=== PATIENT | female | born 1995 | race Caucasian/White ===

== ENCOUNTER 2018-07-28 09:57 | Emergency (ER) | payer OTHER ==
--- NOTE | 2018-07-28 10:57 | RAD REPORT ---
EXAM DESCRIPTION: RAD - Chest Pa And Lat (2 Views) - 07/28/2018 10:49 am CLINICAL HISTORY: COUGH Chest pain. COMPARISON: Chest Single View dated 03/04/2016 FINDINGS: The lungs are clear. The heart is normal in size. No displaced fractures. IMPRESSION: No acute or concerning finding suspected.
--- NOTE | 2018-07-28 11:18 | ER ---
Nurse's Notes [facility] Name: Renetta Flores Age: 22 yrs Sex: Female : 1995 Arrival Date: 07/28/2018 Time: 09:59 Bed 26 Private MD: None, None Diagnosis: Acute pharyngitis, unspecified Presentation: 07/28 10:11 Presenting complaint: Patient states: slight cough that began 1 1/2 weeks ago, pt aa5 states "I feel like I can barely breathe and I feel like my tonsils are swollen". Pt reports nasal congestion and runny nose. Transition of care: patient was not received from another setting of care. Onset of symptoms was July 2018. Risk Assessment: Do you want to hurt yourself or someone else? Patient reports no desire to harm self or others. Initial Sepsis Screen: Does the patient meet any 2 criteria? No. Patient's initial sepsis screen is negative. Does the patient have a suspected source of infection? No. Patient's initial sepsis screen is negative. Care prior to arrival: None. 10:11 Method Of Arrival: Ambulatory aa5 10:11 Acuity: HAIM 3 aa5 Triage Assessment: 11:13 General: Appears uncomfortable, Behavior is calm, cooperative. Respiratory: Reports ls4 cough that is non-productive, dry, Onset: The symptoms/episode began/occurred since beginning of the year. , the patient has mild shortness of breath. 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 - Social history:: Smoking status: Patient/guardian denies using tobacco. - Ebola Screening: : No symptoms or risks identified at this time. Screenin:12 Abuse screen: Denies threats or abuse. Denies injuries from another. Nutritional ls4 screening: No deficits noted. Tuberculosis screening: No symptoms or risk factors identified. Fall Risk None identified. Assessment: 11:12 Pain: Complains of pain in left aspect of posterior pharynx and right aspect of ls4 posterior pharynx Pain currently is 7 out of 10 on a pain scale. Cardiovascular: Rhythm is regular. Respiratory: Airway is patent Respiratory effort is even, unlabored, Breath sounds are clear bilaterally. Vital Signs: 10:13 BP 128 / 95; Pulse 88; Resp 16 S; Temp 98.3(O); Pulse Ox 100% on R/A; Weight 113.4 kg aa5 (R); Height 5 ft. 8 in. (172.72 cm) (R); Pain 7/10; 11:32 BP 126 / 84; Pulse 78; Resp 16; Pulse Ox 99% on R/A; Pain 3/10; ls4 10:13 Body Mass Index 38.01 (113.40 kg, 172.72 cm) aa5 ED Course: 09:59 Patient arrived in ED. dp 09:59 None, None is Private Physician. dp 10:09 Sue [facility]C [facility]. snw 10:09 Jose Antonio Perry MD is Attending Physician. snw 10:11 Arm band placed on. aa5 10:13 Triage completed. aa5 10:18 Susan Hull, RN is Primary Nurse. ls4 10:35 Patient moved to radiology via wheelchair. mh1 10:43 Chest Pa And Lat (2 Views) XRAY In Process Unspecified. EDMS 11:11 Urine Microscopic Only Sent. ls4 11:12 Patient has correct armband on for positive identification. Bed in low position. Call ls4 light in reach. Side rails up X 1. 11:12 No provider procedures requiring assistance completed. ls4 11:16 Leyda Gonzalez MD is Referral Physician. snw 12:00 Patient did not have IV access during this emergency room visit. ls4 Administered Medications: 11:20 Drug: Decadron 8 mg Route: PO; ls4 11:58 Follow up: Response: No adverse reaction ls4 Outcome: 11:18 Discharge ordered by . snw 12:00 Discharged to home ambulatory, with friend. ls4 12:00 Condition: stable 12:00 Discharge instructions given to patient, Instructed on discharge instructions, follow up and referral plans. medication usage, Demonstrated understanding of instructions, follow-up care, medications, Prescriptions given X 2. 12:03 Patient left the ED. ls4 Signatures: Dispatcher [employer] EDMS uSe Huang FNP-C METAL ENGRAVER-Csnw Anum Beltran 1 Lucy Roman, RN RN aa5 Susan Hull RN RN ls4 Josh Bowens Corrections: (The following items were deleted from the chart) 10: Immunization history: Flu vaccine status is unknown. aa5 aa5 10: BP 128 / 95; Pulse 88bpm; Resp 16bpm; Spontaneous; Pulse Ox 100% RA; Temp 98.3F aa5 Oral; aa5
--- NOTE | 2018-07-28 11:18 | EDPHYS ---
Physician Documentation [facility] Name: Renetta Flores Age: 22 yrs Sex: Female : 1995 Arrival Date: 07/28/2018 Time: 09:59 Bed 26 Private MD: None, None ED Physician Jose Antonio Perry HPI: 07/28 11:22 This 22 yrs old Female presents to ER via Ambulatory with complaints of snw Shortness Of Breath, Possible tonsil swelling. 11:22 The patient has shortness of breath on awakening. Onset: The symptoms/episode snw began/occurred 4 month(s) ago, and became persistent. Duration: The symptoms are chronic. Associated signs and symptoms: Pertinent positives: non-productive cough. Severity of symptoms: At their worst the symptoms were moderate. It is unknown whether or not the patient has had similar symptoms in the past. pt states she has taken antibiotics for same s/s without improvement. Tonsillar enlargement x 4 months. 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 - Social history:: Smoking status: Patient/guardian denies using tobacco. - Ebola Screening: : No symptoms or risks identified at this time. ROS: 11:21 Constitutional: Negative for fever, chills, and weight loss, Eyes: Negative for injury, snw pain, redness, and discharge. 11:21 Neck: Negative for injury, pain, and swelling, Cardiovascular: Negative for chest pain, palpitations, and edema, Respiratory: Negative for shortness of breath, cough, wheezing, and pleuritic chest pain, Abdomen/GI: Negative for abdominal pain, nausea, vomiting, diarrhea, and constipation, Back: Negative for injury and pain, : Negative for injury, bleeding, discharge, and swelling, MS/Extremity: Negative for injury and deformity, Skin: Negative for injury, rash, and discoloration, Neuro: Negative for headache, weakness, numbness, tingling, and seizure. 11:21 ENT: Positive for sinus congestion, sore throat, enlarged tonsils. Exam: 11:19 Constitutional: This is a well developed, well nourished patient who is awake, alert, snw and in no acute distress. 11:19 Eyes: Pupils equal round and reactive to light, extra-ocular motions intact. Lids and lashes normal. Conjunctiva and sclera are non-icteric and not injected. Cornea within normal limits. Periorbital areas with no swelling, redness, or edema. 11:19 Neck: Trachea midline, no thyromegaly or masses palpated, and no cervical lymphadenopathy. Supple, full range of motion without nuchal rigidity, or vertebral point tenderness. No Meningismus. Chest/axilla: Normal chest wall appearance and motion. Nontender with no deformity. No lesions are appreciated. Cardiovascular: Regular rate and rhythm with a normal S1 and S2. No gallops, murmurs, or rubs. Normal PMI, no JVD. No pulse deficits. Respiratory: Lungs have equal breath sounds bilaterally, clear to auscultation and percussion. No rales, rhonchi or wheezes noted. No increased work of breathing, no retractions or nasal flaring. Abdomen/GI: Soft, non-tender, with normal bowel sounds. No distension or tympany. No guarding or rebound. No evidence of tenderness throughout. Back: No spinal tenderness. No costovertebral tenderness. Full range of motion. Skin: Warm, dry with normal turgor. Normal color with no rashes, no lesions, and no evidence of cellulitis. MS/ Extremity: Pulses equal, no cyanosis. Neurovascular intact. Full, normal range of motion. Neuro: Awake and alert, GCS 15, oriented to person, place, time, and situation. Cranial nerves II-XII grossly intact. Motor strength 5/5 in all extremities. Sensory grossly intact. Cerebellar exam normal. Normal gait. 11:19 Head/face: Noted is Malar rash. 11:19 ENT: Ear canal(s): are normal, TM's: are normal, Nose: is normal, Nasal mucosa: edematous, Mouth: is normal, Posterior pharynx: Tonsils: bilaterally enlarged, Voice: is normal. Vital Signs: 10:13 BP 128 / 95; Pulse 88; Resp 16 S; Temp 98.3(O); Pulse Ox 100% on R/A; Weight 113.4 kg aa5 (R); Height 5 ft. 8 in. (172.72 cm) (R); Pain 7/10; 11:32 BP 126 / 84; Pulse 78; Resp 16; Pulse Ox 99% on R/A; Pain 3/10; ls4 10:13 Body Mass Index 38.01 (113.40 kg, 172.72 cm) aa5 MDM: 10:21 Patient medically screened. [facility] 11:21 Data reviewed: vital signs, nurses notes. Data interpreted: Pulse oximetry: on room air snw is 100 %. Interpretation: normal. 07/28 10:24 Order name: Strep; Complete Time: 11:07 ls4 07/28 10:24 Order name: Flu; Complete Time: 11:19 ls4 07/28 10:25 Order name: Urine Microscopic Only snw 07/28 10:25 Order name: Urine Microscopic Only; Complete Time: 11:33 EDMS 07/28 11:03 Order name: Throat Culture EDMS 07/28 11:31 Order name: Urine Dipstick--Ancillary (enter results); Complete Time: 11:46 bd 07/28 10:25 Order name: Chest Pa And Lat (2 Views) XRAY; Complete Time: 11:07 snw 07/28 10:25 Order name: Urine Test (obtain specimen); Complete Time: 11:11 snw 07/28 10:25 Order name: Urine Dipstick-Ancillary (obtain specimen); Complete Time: 11:11 snw 07/28 11:31 Order name: Urine --Ancillary (enter results); Complete Time: 11:46 bd Administered Medications: 11:20 Drug: Decadron 8 mg Route: PO; ls4 11:58 Follow up: Response: No adverse reaction ls4 Disposition: 12:57 Co-signature as Attending Physician, Jose Antonio Perry MD I agree with the assessment and [facility] plan of care. Disposition: 07/28/18 11:18 Discharged to Home. Impression: Acute pharyngitis, unspecified. - Condition is Stable. - Discharge Instructions: Pharyngitis, Upper Respiratory Infection, Adult. - Prescriptions for Zyrtec 10 mg Oral Tablet - take 1 tablet by ORAL route once daily As needed; 20 tablet. Prednisone 20 mg Oral Tablet - take 2 tablet by ORAL route once daily for 5 days; 10 tablet. - Medication Reconciliation Form, Thank You Letter, Antibiotic Education, Prescription Opioid Use form. - Follow up: Private Physician; When: 2 - 3 days; Reason: Recheck today's complaints, Continuance of care, Re-evaluation by your physician. Follow up: Emergency Department; When: As needed; Reason: Worsening of condition. Follow up: Leyda Gonzalez MD; When: 2 - 3 days; Reason: Recheck today's complaints, Continuance of care. Signatures: Dispatcher [employer] EDMS Jose Antonio Perry MD MD cha Therrien, Shelly, CASH POSTER-C CASH POSTER-Csnw Lucy Roman, RN RN aa5 Susan Hull RN RN ls4 Corrections: (The following items were deleted from the chart) 10:14 10:13 Immunization history: Flu vaccine status is unknown. aa5 aa5 12:03 11:18 07/28/2018 11:18 Discharged to Home. Impression: Acute pharyngitis, unspecified. ls4 Condition is Stable. Forms are Medication Reconciliation Form, Thank You Letter, Antibiotic Education, Prescription Opioid Use. Follow up: Private Physician; When: 2 - 3 days; Reason: Recheck today's complaints, Continuance of care, Re-evaluation by your physician. Follow up: Emergency Department; When: As needed; Reason: Worsening of condition. Follow up: Leyda Gonzalez; When: 2 - 3 days; Reason: Recheck today's complaints, Continuance of care. snw
[2018-07-28 11:28] LABS: Urine Bacteria <20 /HPF (<20); Urine Culture Reflex Order NOT NEEDED; Urine RBC <5 /HPF (NONE SEEN)
[2018-07-28] MEDS ORDERED: DEXAMETHASONE 4 MG TAB ONE (11:32)
[2018-07-28 11:39] LABS: Urine Blood 2+ (NEG); Urine Glucose NEGATIVE (NEG); Urine Protein NEGATIVE (NEG); Urine Specific Gravity 1.025 (1.005-1.030)
== END 2018-07-28 12:03 | disposition home or self-care (01) ==
LOC: ER 09:57
DX: J02.9 Acute pharyngitis, unspecified (principal)
CPT/HCPCS: 71046; 81003; 81015; 81025; 87070; 87081; 87804; 99284

== ENCOUNTER 2020-11-12 23:58 | Emergency (ER) | payer OTHER ==
--- OUTSIDE RECORDS SUMMARY | 2020-11-13 00:01 | XMS REPORT | Continuity of Care Document ---
:1995 Author Organization [facility] t Address [address] [place] [address] Care Team Providers Name Role Phone Doctor Unassigned, Name Attending Clinician Unavailable Fred CHAVEZ Attending Clinician FRED, MONIQUE Attending Clinician Unavailable MONIQUE IBARRA Admitting Clinician Unavailable Problems Condition Condition Condition Status Onset Resolution Last Treating Co mments Source Name Details Category Date Date Treatment Clinician Date Tonsillar Tonsillar Disease Active [facility]-25 [facility] - y y 00:00: [facility] Center Allergies, Adverse Reactions, Alerts This patient has no known allergies or adverse reactions. Social History Social Habit Start Date Stop Date Quantity Comments Source History [facility] St[facility] r Drinks History [facility] - Alcohol Binge Medical [facility] [facility] Sex Assigned At [facility] kes [facility] Tobacco use and 2019-05-14 2019-05-[address] [facility] Soraya kes - exposure 00:00:00 00:00:00 Medical Center Alcohol intake 2019-05-14 2019-05-14 [facility] (finding) [facility] Center History SDOH 2019-05-11 2019-05-[address] [facility] - Alcohol Frequency 00:00:00 00:00:00 Medical Center Alcohol Comment 2019-05-11 2019-05-[address] [facility] - 00:00:00 00:[facility]:00 [facility] Center Smoking Status Start Date Stop Date Source Never smoker [facility] edical Center Medications Ordered Filled Start Stop Current Ordering Indication Dosage Frequency Signature Comments Components Source Medication Medication Date Date Medication? Clinician (SIG) Name Name phentermine Yes 37.5mg QD Take 37.[address] [facility] 37.5 MG 1-09 mg [facility] - capsule 10:20: mouth Medical 12 every Center morning. etonogestre 2019- Yes by [facility] 1-09 Subdermal [facility] - (NEXPLANON) 10:20: route. Medi tristan 68 mg Impl 12 Center metFORMIN Yes 500mg Take [address] [facility] (GLUCOPHAGE 1-09 mg by [facility] - ) 500 MG 10:20: mouth 2 Medica l tablet 12 (two) Center times daily with breakfast and dinner. Procedures This patient has no known procedures. Plan of Care Planned Activity Planned Date Details Comments Source Future Scheduled 2020-01-[address] [facility] - Test 00:00:00 (#1) [code = [facility] INFLUENZA VACCINE (#1)] Future Scheduled 2016-12-[address] [facility] - Test 00:00:00 malignant neoplasm Medical C enter of cervix (procedure) [code = 477982538] Future Scheduled [address] [facility] - Test 00:00:00 (procedure) [code = [facility] 92582682] Encounters Start End Encounter Admission Attending Care Care Encounter Source Date/Time Date/Time Type Type Clinicians Facility Department ID 2019-08-28 2019-08-28 Orders Doctor JING [id number] 00:00:00 00:00:00 Only Unassigned, BHUPENDRA [id number] [place] [facility] [id number] 2019-06-02 2019-06-02 Office FORD Ibarra [id number] 10:37:21 10:57:21 Visit Elise AMBULATOR [id number] Y [id number] Results Test Description Test Time Test Comments Results Result Comments Source TISSUE EXAM 2019-05-15 Surgical Pathology 16:41:00 Report Case: [id number] Authorizing Provider: Elise Ibarra MD Collected: 05/14/2019802 Ordering Location: [facility] OQMT PERIOPERATIVE Received: 05/14/2019 1118 SERVICES Pathologist: Eric Beasley MD Specimens: A) - Tonsil, Left B) - Tonsil, Right A. TONSIL, LEFT PALATINE, TONSILLECTOMY- REACTIVE LYMPHOID HYPERPLASIA WITH FOCAL ACUTE CRYPTITISB. TONSIL, RIGHT PALATINE, TONSILLECTOMY- REACTIVE LYMPHOID HYPERPLASIA WITH FOCAL ACUTE CRYPTITIS Signing Pathologist Direct Phone Line: [phone] chhaya signed by Eric Beasley MD on 05/15/2019 at 4:41 [id number] X 2Chronic tonsillitis A. Left tonsil. B. Right tonsil A. Received in formalin labeled with the patient's name, accession number and "left tonsil" is a 3.2 x 2.2 x 1.4 cm ovoid tonsil with cautery. The mucosal surface is branch-pink, smooth and cryptic. The margin is inked blue, and the specimen is serially sectioned to reveal branch-pink homogeneous cryptic cut surface that is filled with branch-yellow debris. Operating Room Surgical Technologist sections are submitted in A1-A2. B. Received in formalin labeled with the patient's name, accession number and "right tonsil" is a 3.1 x 27 x 1.5 cm ovoid tonsil with cautery. The mucosal surface is branch-pink, smooth and cryptic. The margin is inked blue, and the specimen is serially sectioned to reveal a branch-pink homogeneous cryptic cut surface. Operating Room Surgical Technologist sections are submitted in B1-B2. PA/ew Performed.[facility], Department of Pathology, [address] [place] [id number], [facility], [address] [place] [id number], [facility], [facility] of [facility], [address] [place] [id number], POCT-GLUCOSE METER 2019-05-14 06:57:00 Test Item Value Reference Range Interpretation Comme nts POC-GLUCOSE METER (BEAKER) 110 mg/dL 70-110 : TESTED AT [address] (test code = 1538) [facility] X [id number]: Nuclear Plant Instrument Technician/Techni chi ID = [id number] for DAVID CISSE POCT-HEMOGLOBIN [id number] 06:49:00 Test Item Value Reference Range Interpretation Comments POC-HEMOGLOBIN METER 11.9 g/dL 12.0-15.0 L TESTED AT [place] [address] ([facility]) (test code = ELENITA PHILLIPS 1539) [id number]
[2020-11-13] MEDS ORDERED: ACETAMINOPHEN 500 MG TAB ONE (01:49)
--- NOTE | 2020-11-13 03:55 | ER ---
Nurse's Notes [facility] Name: Renetta Flores Age: 24 yrs Sex: Female : 1995 Arrival Date: 11/13/2020 Time: 00:14 Bed 14 Private MD: Diagnosis: Phalanx Fracture, Right 5th Toe Presentation: 11/13 01:06 Chief complaint: Patient states: she was walking down the hallway at home and hit her bb right foot on a door jamb injuring the pinky toe which is now crooked. Coronavirus screen: At this time, the client does not indicate any symptoms associated with coronavirus-19. Ebola Screen: No symptoms or risks identified at this time. Initial Sepsis Screen: Does the patient meet any 2 criteria? No. Patient's initial sepsis screen is negative. Does the patient have a suspected source of infection? No. Patient's initial sepsis screen is negative. Risk Assessment: Do you want to hurt yourself or someone else? Patient reports no desire to harm self or others. Onset of symptoms was November 13, 2020. 01:06 Method Of Arrival: Wheelchair 01:06 Acuity: HAIM 4 bb Triage Assessment: 01:08 General: Appears in no apparent distress. Behavior is calm, cooperative. Pain: ak2 Complains of pain in right foot. Musculoskeletal: Reports pain in right foot. 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 - Social history:: Smoking status: Patient denies any tobacco usage or history of. Smoking status: unknown. Screenin:10 Abuse screen: Denies threats or abuse. Denies injuries from another. Nutritional ak2 screening: No deficits noted. Tuberculosis screening: No symptoms or risk factors identified. Fall Risk None identified. Assessment: 02:58 General: Appears in no apparent distress. Pain: Denies pain. Neuro: No deficits noted. ak2 Cardiovascular: No deficits noted. Respiratory: No deficits noted. Vital Signs: 01:06 BP 133 / 80; Pulse 78; Resp 18 S; Temp 97.7(O); Pulse Ox 96% on R/A; Weight 108.86 kg (R); Height 5 ft. 8 in. (172.72 cm) (R); Pain 8/10; 02:58 BP 112 / 74; Pulse 72; Resp 18; Pulse Ox 98% on R/A; ak2 01:06 Body Mass Index 36.49 (108.86 kg, 172.72 cm) ED Course: 00:14 Patient arrived in ED. am4 00:54 Raji Gold MD is Attending Physician. [facility] 01:08 Triage completed. 01:08 Melo Lynn is Primary Nurse. ak2 01:08 Arm band placed on Patient placed in an exam room, on a stretcher. Family accompanied patient. 01:10 Patient has correct armband on for positive identification. ak2 01:10 No provider procedures requiring assistance completed. Patient did not have IV access ak2 during this emergency room visit. 01:48 Foot Right 3 View XRAY In Process Unspecified. EDMS 03:54 Yogi Hurst MD is Referral Physician. 7 Administered Medications: 01:29 Drug: Tylenol 1000 mg Route: PO; ak2 Outcome: 03:55 Discharge ordered by . [facility] 04:12 Discharged to home ambulatory. ak2 04:12 Condition: good 04:12 Discharge instructions given to patient. 04:13 Patient left the ED. ak2 Signatures: Dispatcher [employer] EDMS Kaye Irvin RN RN Raji Gold MD MD Norma Flores 4 Melo Lynn ak2
--- NOTE | 2020-11-13 03:55 | EDPHYS ---
Physician Documentation [facility] Name: Renetta Flores Age: 24 yrs Sex: Female : 1995 Arrival Date: 11/13/2020 Time: 00:14 Bed 14 Private MD: ED Physician Raji Gold HPI: 11/13 01:39 This 24 yrs old Female presents to ER via Wheelchair with complaints of Foot mh7 Injury. 01:39 The patient presents with an injury. The complaints affect the right foot. Context: The mh7 problem was sustained at home, resulted from stubbing toe on corner of solid object. Mechanism of Injury: Direct blow the patient can fully bear weight, the patient is able to ambulate, without difficulty. Onset: The symptoms/episode began/occurred just prior to arrival, today. 01:41 Modifying factors: The symptoms are alleviated by nothing, the symptoms are aggravated mh7 by movement. Associated signs and symptoms: Pertinent negatives: calf tenderness, fever, nausea, numbness, rash, swelling, tingling, vomiting, warmth, weakness. Severity of symptoms: At their worst the symptoms were mild, earlier today, in the emergency department the symptoms are unchanged. 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 - Social history:: Smoking status: Patient denies any tobacco usage or history of. Smoking status: unknown. ROS: 01:41 Constitutional: Negative for fever, chills, and weight loss, Eyes: Negative for injury, mh7 pain, redness, and discharge, ENT: Negative for injury, pain, and discharge, Neck: Negative for injury, pain, and swelling, Cardiovascular: Negative for chest pain, palpitations, and edema, Respiratory: Negative for shortness of breath, cough, wheezing, and pleuritic chest pain, Abdomen/GI: Negative for abdominal pain, nausea, vomiting, diarrhea, and constipation, Back: Negative for injury and pain, : Negative for injury, bleeding, discharge, and swelling, Skin: Negative for injury, rash, and discoloration, Neuro: Negative for headache, weakness, numbness, tingling, and seizure, Psych: Negative for depression, anxiety, suicide ideation, homicidal ideation, and hallucinations, Allergy/Immunology: Negative for hives, rash, and allergies, Endocrine: Negative for neck swelling, polydipsia, polyuria, polyphagia, and marked weight changes, Hematologic/Lymphatic: Negative for swollen nodes, abnormal bleeding, and unusual bruising. Exam: 01:41 Constitutional: This is a well developed, well nourished patient who is awake, alert, mh7 and in no acute distress. Head/Face: Normocephalic, atraumatic. Skin: Warm, dry with normal turgor. Normal color with no rashes, no lesions, and no evidence of cellulitis. 01:41 Neuro: Awake and alert, GCS 15, oriented to person, place, time, and situation. Cranial nerves II-XII grossly intact. Motor strength 5/5 in all extremities. Sensory grossly intact. Cerebellar exam normal. Normal gait. Psych: Awake, alert, with orientation to person, place and time. Behavior, mood, and affect are within normal limits. 01:41 Musculoskeletal/extremity: Extremities: noted in the right foot 5th toe: pain, tenderness, ROM: limited active range of motion due to pain, in the right foot 5th toe, limited passive range of motion due to pain, in the right foot 5th toe, Circulation is intact in all extremities. Sensation intact. Compartment Syndrome exam of affected extremity: is normal. no numbness, no tingling, no sensation deficit, no palor, no weak pulses, Joints: All joints appear normal with full range of motion. Weight bearing: able to fully bear weight, without difficulty, Tendon exam: specific tendon testing normal through active and passive range of motion Vital Signs: 01:06 BP 133 / 80; Pulse 78; Resp 18 S; Temp 97.7(O); Pulse Ox 96% on R/A; Weight 108.86 kg bb (R); Height 5 ft. 8 in. (172.72 cm) (R); Pain 8/10; 02:58 BP 112 / 74; Pulse 72; Resp 18; Pulse Ox 98% on R/A; ak2 01:06 Body Mass Index 36.49 (108.86 kg, 172.72 cm) bb MDM: 03:52 Differential diagnosis: fracture, sprain. Data reviewed: vital signs, nurses notes, [facility] radiologic studies, plain films. Counseling: I had a detailed discussion with the patient and/or guardian regarding: the historical points, exam findings, and any diagnostic results supporting the discharge/admit diagnosis, radiology results, the need for outpatient follow up, to return to the emergency department if symptoms worsen or persist or if there are any questions or concerns that arise at home. Counseling: I had a detailed discussion with the patient and/or guardian regarding: the need for outpatient follow up, a orthopedic surgeon. Response to treatment: the patient's symptoms have markedly improved after treatment. 03:[address] [facility] 11/13 01:18 Order name: Foot Right [address] [facility] 11/13 03:38 Order name: Walking boot [facility] Administered Medications: 01:29 Drug: Tylenol 1000 mg Route: PO; ak2 Disposition Summary: 11/13/20 03:55 Discharge Ordered Location: Home [facility] Problem: new [facility] Symptoms: have improved [facility] Condition: Stable [facility] Diagnosis - Phalanx Fracture, Right 5th Toe [facility] Followup: [facility] - With: Private Physician - When: 1 - 2 days - Reason: Worsening of condition, Recheck today's complaints, Continuance of care, Re-evaluation by your physician Followup: [facility] - With: Yogi Hurst MD - When: 1 - 2 days - Reason: Worsening of condition, Recheck today's complaints Discharge Instructions: - Discharge Summary Sheet [facility] - Toe Fracture, [id number] [facility] Forms: - Medication Reconciliation Form [facility] - Thank You Letter [facility] - Antibiotic Education [facility] - Prescription Opioid Use [facility] Prescriptions: - Ibuprofen 800 mg Oral Tablet - take 1 tablet by ORAL route every 8 hours As needed take with food; 15 tablet; 7 Refills: 0, Product Selection Permitted - Tramadol 50 mg Oral Tablet - take 1 tablet by ORAL route every 8 hours as needed; 12 tablet; Refills: 0, [facility] Product Selection Permitted Signatures: Dispatcher [employer] Kaye Villafuerte RN RN Raji Campos MD MD [facility] [place], Melo ak2
[2020-11-13 04:52] VITALS: TEMP 97.7
[2020-11-13 04:53] VITALS: BP 112/74; O2SAT 98
--- NOTE | 2020-11-13 09:49 | RAD REPORT ---
EXAM DESCRIPTION: RAD - Foot Right 3 View - 11/13/2020 1:48 am CLINICAL HISTORY: Right foot pain status post injury FINDINGS: An oblique fracture involves the mid aspect of the fifth proximal phalanx. It has more of the appearance of being subacute or chronic than acute. However, this should be correlated clinically . There is some displacement of fracture fragments. No dislocation
== END 2020-11-13 04:13 | disposition home or self-care (01) ==
LOC: ER 23:58
DX: S92.401A Displaced unspecified fracture of right great toe, initial encounter for closed fracture (principal); W22.8XXA Striking against or struck by other objects, initial encounter; Y93.01 Activity, walking, marching and hiking; Y92.009 Unspecified place in unspecified non-institutional (private) residence as the place of occurrence of the external cause
CPT/HCPCS: 99283